=== PATIENT | female | born 1965 | race Caucasian/White ===

== ENCOUNTER → 2022-01-28 12:40 | Outpatient (BNVA) | payer BC, SELFPAY | PROVIDERS: Visit Provider Registered Nurse Neonatal Intensive Care | DX: M25.561 Pain in right knee (principal) | CPT/HCPCS: 73562 ==

== ENCOUNTER → 2022-02-01 16:30 | Outpatient (BNVA) | payer BC, SELFPAY | PROVIDERS: Visit Provider Family Medicine | DX: E11.42 Type 2 diabetes mellitus with diabetic polyneuropathy (principal); M25.561 Pain in right knee; E78.2 Mixed hyperlipidemia; Z76.89 Persons encountering health services in other specified circumstances | CPT/HCPCS: 80053; 80061; 83036; 85025 ==

== ENCOUNTER → 2024-06-03 11:12 | Outpatient (BNVA) | payer BC, SELFPAY | DX: M19.012 Primary osteoarthritis, left shoulder (principal); M25.712 Osteophyte, left shoulder; M25.512 Pain in left shoulder | CPT/HCPCS: 73030 ==

== ENCOUNTER → 2024-06-05 08:43 | Outpatient (BNVA) | payer BC, SELFPAY | PROVIDERS: PCP Family Medicine; Visit Provider Family Medicine | DX: E11.9 Type 2 diabetes mellitus without complications (principal) | CPT/HCPCS: 80053; 80061; 81003; 83036; 84439; 84443; 85025 ==

== ENCOUNTER 2024-06-20 08:18 | Outpatient (CLI) | payer BC, SELFPAY ==
--- NOTE | 2024-06-20 08:45 | MR_ITS ---
WS: [id number] MRI LEFT SHOULDER NONCONTRAST TECHNIQUE: Sagittal T2, coronal T1, T2 and proton density imaging. Axial gradient PDE imaging. CLINICAL INFORMATION: rotator cuff tear COMPARISON: None. FINDINGS: Moderate degenerative arthritis AC joint with subacromial spurring. Subacromial subdeltoid fluid. Imp ingement on the distal supraspinatus. Longitudinal intrasubstance tear distal supraspinatus. Tendinop athy supraspinatus. Normal infraspinatus. Normal teres minor. Normal subscapularis tendon. Small split tear involving the biceps tendon in the proximal bicipital groove. Intra-articular biceps tendon appears intact. Tendinopathy intra-articular biceps tendon. Moderate to advanced degenerative narrowing glenohumeral articulation. Normal bone marrow signal in the glenoid. MR/MR shoulder LT wo con* [id number] IMPRESSION: 1. Moderate to advanced arthritis AC joint with narrowing of the subacromial s pace. Impingement distal supraspinatus. 2. Tendinopathy distal supraspinatus with partial intrasubstance bursal surfac e tear. 3. Otherwise normal rotator cuff. 4. Biceps tendon appears intact within the bicipital groove. Tendinopathy intr a-articular biceps tendon. 5. Small split tear involving the proximal biceps tendon in the bicipital groo ve. 6. Moderate to advanced degenerative narrowing glenohumeral articulation.
== END 2024-06-20 08:19 | disposition home or self-care (01) ==
LOC: RAD 08:19
PROVIDERS: PCP Family Medicine; Visit Provider Family Medicine
DX: Z12.31 Encounter for screening mammogram for malignant neoplasm of breast (principal); M19.012 Primary osteoarthritis, left shoulder; M75.42 Impingement syndrome of left shoulder; M75.92 Shoulder lesion, unspecified, left shoulder; M75.22 Bicipital tendinitis, left shoulder; S46.212A Strain of muscle, fascia and tendon of other parts of biceps, left arm, initial encounter; X58.XXXA Exposure to other specified factors, initial encounter
CPT/HCPCS: 73221; 77063; 77067

== ENCOUNTER → 2024-06-23 13:20 | Outpatient (BNVA) | payer BC, SELFPAY | PROVIDERS: PCP Family Medicine; Visit Provider Specialist | DX: M25.512 Pain in left shoulder (principal); G89.29 Other chronic pain; M75.92 Shoulder lesion, unspecified, left shoulder | CPT/HCPCS: 73030 ==

== ENCOUNTER 2024-06-24 13:12 | Outpatient (CLI) | payer BC, SELFPAY ==
[2024-06-24] MEDS: iohexol 350 mg/mL 500 mL Btl (per mL) IV (13:31)
--- NOTE | 2024-06-24 14:00 | CTR_ITS ---
PROCEDURE INFORMATION: Exam: CTA Abdominal Aorta and Bilateral Lower Extremities (Run-off) With Contrast Exam date and time: 06/24/2024 1:20 PM Age: 59 years old Clinical indication: Foot pain; Prior surgery; Surgery date: 6+ months; Surgery type: Bi-femoral bypass with graft, c-sections, bilat iliac stents, left ankle, left foot; Patient HX: Balance issues with left foot drop; Additional info: Pad with iliac stents, cta with runoff to eval femoral and iliac arteries TECHNIQUE: Imaging protocol: Computed tomographic angiography of the of the abdominal aorta, pelvis and bilateral lower extremities with contrast. 3D rendering (Not supervised by radiologist): MIP and/or 3D reconstructed images were created by the technologist. Radiation optimization: All CT scans at this facility use at least one of these dose optimization techniques: automated exposure control; mA and/or kV adjustment per patient size (includes targeted exams where dose is matched to clinical indication); or iterative reconstruction. Contrast material: OMNIPAQUE 350; Contrast volume: 125 ml; Contrast route: INTRAVENOUS (IV); COMPARISON: CR XR knee RT 3V* [id number] 01/28/2022 12:52 PM RADIATION DOSE METRICS: Total DLP (mGy-cm): 1518.29 FINDINGS: Aorta: Aorto bi-iliac graft. The graft is patent. Celiac trunk and mesenteric arteries: No occlusion or significant stenosis. Renal arteries: No occlusion or significant stenosis. Right iliac arteries: No occlusion or significant stenosis. Right femoral/popliteal arteries: No occlusion or significant stenosis. Right infrapopliteal arteries: No occlusion or significant stenosis. Left iliac arteries: No occlusion or significant stenosis. Left femoral/popliteal arteries: No occlusion or significant stenosis. Left infrapopliteal arteries: No occlusion or significant stenosis. Liver: No mass. Gallbladder and biliary ducts: Cholecystectomy. Pancreas: Unremarkable. No mass. No ductal dilation. Spleen: Normal. No splenomegaly. Adrenal glands: Normal. No mass. Kidneys and ureters: Normal. No mass. Stomach and bowel: Unremarkable. No obstruction. No mucosal thickening. Appendix: No evidence of appendicitis. Urinary bladder: Unremarkable. No mass. Reproductive: Unremarkable as visualized. Intraperitoneal space: Unremarkable. No free air. No significant fluid collection. Lymph nodes: No lymphadenopathy. Bones/joints: Bilateral knee replacement. Soft tissues: Unremarkable. Other findings: The iliac arteries and below the graft are all widely patent. CT/CT angio abd aorta runof [id number] IMPRESSION: Patent aorto bi-iliac graft. Patent pelvic and distal vessels.
== END 2024-06-24 13:13 | disposition home or self-care (01) ==
LOC: RAD 13:12
PROVIDERS: PCP Family Medicine; Visit Provider Family Medicine
DX: Z95.828 Presence of other vascular implants and grafts (principal); Z90.49 Acquired absence of other specified parts of digestive tract
CPT/HCPCS: 75635

== ENCOUNTER → 2024-09-05 09:01 | Outpatient (BNVA) | payer BC, SELFPAY | PROVIDERS: PCP Family Medicine; Visit Provider Family Medicine | DX: E11.9 Type 2 diabetes mellitus without complications (principal) | CPT/HCPCS: 83036 ==

== ENCOUNTER 2024-12-26 11:08 | Outpatient (CLI) | payer BC, SELFPAY ==
--- NOTE | 2024-12-26 11:21 | XRR_ITS ---
PROCEDURE INFORMATION: Exam: XR Right Knee Exam date and time: 12/26/2024 11:41 AM Age: 59 years old Clinical indication: Pain; Right; Prior surgery; Surgery date: 6+ months; Surgery type: Bilat knee replacement; Additional info: Chronic knee pain TECHNIQUE: Imaging protocol: Radiologic exam of the right knee. Views: 3 views. COMPARISON: 1. CT angio abd aorta runof [id number] 06/24/2024 1:20 PM 2. CR XR knee RT 3V* [id number] 01/28/2022 12:52 PM FINDINGS: Bones/joints: Prior right knee arthroplasty. No additional new appearing displaced fracture nor dislocation seen. No gross bone destruction and no aggressive appearing periosteal reaction seen. Spurring and/or enthesophyte superior patella. Soft tissues: Normal. XR/XR knee RT 3V* [id number] IMPRESSION: Prior right knee arthroplasty.
== END 2024-12-26 11:09 | disposition home or self-care (01) ==
PROVIDERS: PCP Family Medicine; Visit Provider Family Medicine
DX: M25.561 Pain in right knee (principal); G89.29 Other chronic pain; Z96.651 Presence of right artificial knee joint; R93.6 Abnormal findings on diagnostic imaging of limbs
CPT/HCPCS: 73562

== ENCOUNTER → 2025-01-21 07:47 | Outpatient (BNVA) | payer BC, SELFPAY | PROVIDERS: PCP Family Medicine; Visit Provider Specialist | DX: T84.84XA Pain due to internal orthopedic prosthetic devices, implants and grafts, initial encounter (principal); Z96.651 Presence of right artificial knee joint; G89.29 Other chronic pain; X58.XXXA Exposure to other specified factors, initial encounter | CPT/HCPCS: 73560; 73565 ==

== ENCOUNTER → 2025-04-08 09:30 | Outpatient (BNVA) | payer BC, SELFPAY | PROVIDERS: PCP Family Medicine; Visit Provider Family Medicine | DX: E11.9 Type 2 diabetes mellitus without complications (principal) | CPT/HCPCS: 80053; 80061; 83036; 85025 ==

== ENCOUNTER 2025-06-11 06:16 | Outpatient (CLI) | payer BC, SELFPAY ==
--- NOTE | 2025-06-11 06:30 | USCV_ITS ---
Ina Shah Age: 60 Gender: F : 1965 Exam Date: 06/11/2025 06:37 Ordering Phys: Jakub Mckeon MD Technologist: SHIKHA [place] [facility] [place]: h/o arterial stents. HTN Aortic Velocity @ SMA (cm/s) 79.3 RIGHT KIDNEY LEFT KIDNEY Velocity (cm/s) Velocity (cm/s) Sys/Mauro Sys/Mauro Resistive Index Resistive Index 121.1 / 35.5 0.71 Proximal Renal Artery 79.3 / 32.3 0.59 110.7 / 31.5 0.72 Mid Renal Artery 80.0 / 39.4 0.51 190.0 / 57.6 0.70 Distal Renal Artery 82.2 / 31.6 0.62 175.3 / 57.6 0.67 Hilar 16.4 / 8.5 0.48 19.3 / 5.6 0.71 Upper Pole 17.3 / 5.7 0.61 38.6 / 12.2 0.68 Mid Pole 17.8 / 5.3 0.70 18.9 / 5.2 0.73 Lower Pole 30.4 / 9.2 0.70 2.40 Renal Aortic Ratio 1.03 Accleration Time (sec) 1509.0 Hilar 90.80 0 69.80 Upper Pole 192.10 292.60 Mid Pole 46.00 81.30 Lower Pole 196.20 9.3 Kidney Length (cm) 10.0 CONCLUSIONS No hydronephrosis Slightly increased PSV distal RIGHT Renal artery. No proxiaml renal artery stenosis Normal resistive indices bilaterally No LEFT renal artery stenosis Marko Henry MD (Electronically Signed) Final Date: 11 June 2025 12:08 S
--- NOTE | 2025-06-11 07:15 | USR_ITS ---
PROCEDURE INFORMATION: Exam: US Duplex Bilateral Lower Extremity Arteries Exam date and time: 06/11/2025 6:50 AM Age: 60 years old Clinical indication: Other: Pad, attain sarabjit's, HX of stents in bilateral iliac arteries; Prior surgery; Surgery date: 6+ months; Surgery type: Bilat stent placement in iliacs. Bilateral knee replacement TECHNIQUE: Imaging protocol: Real-time ultrasound scan of the arteries of the bilateral lower extremities with 2-D waterman scale, color Doppler flow and spectral waveform analysis. Images documented and saved. COMPARISON: CT angio abd aorta runof [id number] 06/24/2024 1:20 PM FINDINGS: Right common femoral artery: No occlusion or significant stenosis. Normal waveform. Peak systolic velocity 94 cm/sec. Right superficial femoral artery: No occlusion or significant stenosis. Normal waveform. Peak systolic velocity 78 cm/sec proximally, 85 cm/sec through the midportion, and 86 cm/sec distally. Right popliteal artery: No occlusion or significant stenosis. Normal waveform. Peak systolic velocity 32 cm/sec. Right calf/foot arteries: No occlusion or significant stenosis in the visualized arteries. Biphasic waveforms. Dorsalis pedis artery is patent. Right SARABJIT 1.03. Left common femoral artery: No occlusion or significant stenosis. Normal waveform. Peak systolic velocity 102 cm/sec. Left superficial femoral artery: No occlusion or significant stenosis. Normal waveform. Peak systolic velocity 74 cm/sec proximally, 88 cm/sec in the midportion, and 70 cm/sec distally. Left popliteal artery: No occlusion or significant stenosis. Normal waveform. Peak systolic velocity 50 cm/sec. Left calf/foot arteries: No occlusion or significant stenosis in the visualized arteries. Biphasic waveforms. Dorsalis pedis artery is patent. Left SARABJIT 1.00. US/CV arterial duplex [facility] [id number] IMPRESSION: 1. No stenosis or occlusion. 2. Bilateral ABIs within normal limits.
== END 2025-06-11 06:17 | disposition home or self-care (01) ==
LOC: RAD 06:19
PROVIDERS: PCP Family Medicine; Visit Provider Family Medicine
DX: I73.9 Peripheral vascular disease, unspecified (principal); Z96.653 Presence of artificial knee joint, bilateral; Z95.820 Peripheral vascular angioplasty status with implants and grafts
CPT/HCPCS: 93925; 93975

== ENCOUNTER 2025-06-24 07:51 | Outpatient (CLI) | payer BC, SELFPAY ==
--- NOTE | 2025-06-24 07:53 | MM_ITS ---
WS: [id number] BILATERAL SCREENING DIGITAL TOMOSYNTHESIS MAMMOGRAM WITH CAD HISTORY: SCREENING COMPARISON: 06/20/2024, 07/08/2022 Bilateral CC and MLO views with tomosynthesis and synthetic mammography submitted. Computer aided detection analyzed. Breast composition: There are scattered areas of fibroglandular density. No suspicious masses, microcalcifications or architectural distortion. Biopsy clips in the central LEFT breast are stable. There is stable 5 mm masses upper outer quadrant RIGHT breast. MM/MM scr BI tomosynthesis [id number] IMPRESSION: BI-RADS: 2 - Benign. FOLLOW UP: 1 Year Follow-up
== END 2025-06-24 07:52 | disposition home or self-care (01) ==
LOC: RAD 07:51
PROVIDERS: PCP Family Medicine; Visit Provider Family Medicine
DX: Z12.31 Encounter for screening mammogram for malignant neoplasm of breast (principal); R92.323 Mammographic fibroglandular density, bilateral breasts; Z96.89 Presence of other specified functional implants; N63.11 Unspecified lump in the right breast, upper outer quadrant
CPT/HCPCS: 77063; 77067